=== PATIENT | female | born 1960 ===

== ENCOUNTER 2020-01-22 11:44 | Outpatient (CLI) | payer BC ==
[2020-01-23 13:41] LABS: SARS-CoV-2 MS2 Positive; SARS-CoV-2 N Gene Negative; SARS-CoV-2 S Gene Negative; SARS-CoV-2 by NAA Not Detected (NotDetected); SARS-CoV-2 orf1ab Negative
== END 2020-01-22 11:45 | disposition home or self-care (01) ==
LOC: LABBT 11:44
PROVIDERS: ATTEND Internal Medicine Gastroenterology
DX: Z12.11 Encounter for screening for malignant neoplasm of colon (principal); R10.9 Unspecified abdominal pain; Z20.828 Contact with and (suspected) exposure to other viral communicable diseases
CPT/HCPCS: 87635; U0003

== ENCOUNTER 2020-01-26 06:13 | Day surgery (SDC) | payer BC ==
[2020-01-25 09:41] VITALS: BMI 27.4
--- NOTE | 2020-01-26 05:48 | HP ---
HISTORY OF PRESENT ILLNESS: This is a 59-year-old female, comes for a colonoscopy for colon cancer screening. Her bowel movements are regular. No hematochezia. The patient had no family history of colon cancer. The patient also had abdominal pain several months ago and was on omeprazole for 1 month. Her pain improved, but still has pain off and .. The patient also had dry heaves at the same time. ALLERGIES: NONE. SOCIAL HISTORY: The patient does not smoke, but drinks alcohol socially. MEDICAL ILLNESSES: Right breast cancer in 2013, status post mastectomy, and breast reconstruction. PHYSICAL EXAMINATION: VITAL SIGNS: Pulse is 70, blood pressure 120/70. HEENT: Conjunctivae clear. CARDIOVASCULAR SYSTEM: Normal heart sounds. LUNGS: Clear to auscultation. ABDOMEN: Soft. No organomegaly. No tenderness. No masses. Bowel sounds normal. ADMITTING DIAGNOSES: 1. A 59-year-old female with history of abdominal pain a few months ago and was on Lansoprazole.. Most of the pain has gone away. However, she has had some abdominal pain off and on. 2. Colon cancer screening. Will have an EGD and colonoscopy. Job ID: [id number] [facility]
[2020-01-26] MEDS ORDERED: PHENYLEPHRINE-NS 100 MCG/ML 10 ML SYRINGE ONE (10:49)
[2020-01-26] MEDS ORDERED: PROPOFOL 200 MG/20 ML VIAL ONE (10:49)
[2020-01-26] MEDS ORDERED: Lidocaine 1% PF 5 ML VIAL ONE (10:49)
--- NOTE | 2020-01-26 13:21 | OP ---
DATE OF PROCEDURE: 01/26/2020 PREOPERATIVE DIAGNOSES: Abdominal pain, intermittent, mild. She had taken 4 weeks course of lansoprazole 3 months ago. Her symptoms got better, but she still had mild abdominal pain.. POSTOPERATIVE DIAGNOSES: 1. Shallow ulcer in the duodenal bulb. 2. Focal erosive gastritis of the gastric antrum. PROCEDURE PERFORMED: Esophagogastroduodenoscopy with biopsy. DESCRIPTION OF PROCEDURE: The patient was placed on her left lateral position and was given sedation by Anesthesia Department. A Pentax video gastroscope under direct vision passed down the oropharynx past the GE junction into the stomach and subsequently into descending duodenum. The vocal cords appeared very healthy. The esophageal mucosa appeared normal throughout. The GE junction, no pathology. Retroflexion failed to show any pathology in fundus or cardia. The gastric body, gastric incisura, no lesion. The area of focal erosive gastritis of the gastric antrum. This was biopsied. The duodenal bulb showed shallow ulceration. The descending duodenum, no pathology. The scope was withdrawn back in the stomach and biopsies obtained from the gastric antrum and body. The stomach was decompressed and the scope was removed. DISCHARGE PLAN: This is a 59-year-old female, came for EGD and colonoscopy. The EGD showed an ulcer in the bulb and also focal erosive gastritis. The colonoscopy is negative. DISCHARGE RECOMMENDATIONS: 1. Lansoprazole 30 mg p.o. once a day for 2 months. 2. Gastric biopsy shows positive Helicobacter pylori, treat accordingly. 3. The patient was advised to call me if she develops abdominal pain, hematochezia, or fever. 4. In the absence of any other symptoms, she will come back to me in 2 weeks. Job ID: [id number] [facility]
--- NOTE | 2020-01-26 13:30 | OP ---
DATE OF PROCEDURE: 01/26/2020 PROCEDURE PERFORMED: Colonoscopy. PREOPERATIVE DIAGNOSIS: A 59-year-old female, undergoing colonoscopy for colon cancer screening. POSTOPERATIVE DIAGNOSIS: Normal colonoscopy. DESCRIPTION OF PROCEDURE: The patient was placed on her left lateral position and was given sedation by Anesthesia Department. A rectal exam was done before the scope was advanced into the rectum. No lesions felt on rectal exam. A Pentax video colonoscope was introduced in the rectum and advanced all the way to the cecum. The prep was very good. The mucosa appeared normal throughout the colon with normal vascular pattern. The appendiceal orifice, ileocecal valve, and cecum, showed no pathology. The scope was advanced in terminal ileum for a short distance. The ileum appeared normal. Withdrawal of scope in the cecum to ascending colon, hepatic flexure, transverse colon, splenic flexure, descending colon, sigmoid colon, no lesion seen. Retroflexion of scope in the rectum showed no pathology. Job ID: [id number]
== END 2020-01-26 10:10 | disposition home or self-care (01) ==
LOC: SDC 06:13
PROVIDERS: ATTEND Internal Medicine Gastroenterology
PROC: 0DB68ZZ Excision of Stomach, Via Natural or Artificial Opening Endoscopic (ICD-10-PCS; principal; 2020-01-26)
PROC: 0DJD8ZZ Inspection of Lower Intestinal Tract, Via Natural or Artificial Opening Endoscopic (ICD-10-PCS; principal; 2020-01-26)
DX: Z12.11 Encounter for screening for malignant neoplasm of colon (principal); K29.60 Other gastritis without bleeding; K26.9 Duodenal ulcer, unspecified as acute or chronic, without hemorrhage or perforation
CPT/HCPCS: 88305; 88312; J2704